=== PATIENT | male | born 2000 | race Caucasian/White ===

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

== ENCOUNTER 2018-05-20 20:37 | Emergency (ER) | payer OTHER ==
[2018-05-20 21:34] LABS: ADD MAN DIFF? NO
[2018-05-20] MEDS: SOD CHLORIDE 0.9% 500 ML IV (21:35)
[2018-05-20] MEDS: LEVETIRACETAM 1000 MG (PMX) 100 ML IVPB (21:35)
[2018-05-20 21:38] LABS: BASOPHILS % 0.3 % (0.0-2.0); EOSINOPHILS # 0.1 10^3/ul (0.0-0.5); EOSINOPHILS % 0.8 % (0.0-7.0); HEMATOCRIT 42.4 % (42.0-52.0); HEMOGLOBIN 13.9 g/dl (14.0-18.0); LYMPHOCYTES # 2.5 10^3/ul (0.8-2.9); LYMPHOCYTES % 24.8 % (18.0-55.0); MEAN CORPUSCULAR HEMOGLOBIN 25.3 pg (29.0-33.0); MEAN CORPUSCULAR HGB CONC 32.8 g/dl (32.0-37.0); MEAN CORPUSCULAR VOLUME 77.2 fl (72.0-104.0); MEAN PLATELET VOLUME 10.8 fl (7.4-10.4); MONOCYTE # 0.9 10^3/ul (0.3-0.9); MONOCYTES % 9.1 % (0.0-13.0); NEUTROPHIL # 6.6 10^3/ul (1.6-7.5); NEUTROPHILS % 64.7 % (30.0-74.0); PLATELET COUNT 254 10^3/UL (140-415); RED BLOOD COUNT 5.49 10^6/ul (4.70-6.10); RED CELL DISTRIBUTION WIDTH 13.8 % (11.5-14.5)
[2018-05-20 21:38] LABS: WHITE BLOOD COUNT 10.2 10^3/ul (4.8-10.8)
[2018-05-20] MEDS: ONDANSETRON 4 MG INJ IV (21:51)
[2018-05-20] MEDS: morphine 4 MG/ML VIAL IV (21:51)
[2018-05-20 21:58] LABS: ALANINE AMINOTRANSFERASE 78 IU/L (13-69); ALBUMIN 4.6 g/dl (3.3-4.9); ALBUMIN/GLOBULIN RATIO 1.35; ALKALINE PHOSPHATASE 107 IU/L (42-121); ANION GAP 18 (8-16); ASPARTATE AMINO TRANSFERASE 69 IU/L (15-46); BILIRUBIN,INDIRECT 0.7 mg/dl (0-1.1); BILIRUBIN,TOTAL 0.7 mg/dl (0.2-1.3); BLOOD UREA NITROGEN 15 mg/dl (7-20); CALCIUM 9.3 mg/dl (8.4-10.2); CARBON DIOXIDE 23 mmol/L (21-31); CHLORIDE 105 mmol/L (97-110); GLUCOSE 114 mg/dl (70-220); POTASSIUM 3.6 mmol/L (3.5-5.1); SODIUM 142 mmol/L (135-144)
[2018-05-20] MEDS: IODIXANOL LOCM 50 ML BTL (23:41)
[2018-05-20] MEDS: IODIXANOL LOCM 100 ML BTL (23:42)
[2018-05-20] MEDS: SOD CHLORIDE 0.9% 100 ML (23:42)
== END 2018-05-21 01:36 | disposition home or self-care (01) ==
LOC: E/R 05-21 01:36
DX: G40.909 Epilepsy, unspecified, not intractable, without status epilepticus (principal); Z87.891 Personal history of nicotine dependence
CPT/HCPCS: 36415; 70496; 71045; 80053; 85025; 96374; 96375; 99285-25